=== PATIENT | male | born 1990 | race Caucasian/White ===

== ENCOUNTER 2016-06-15 11:28 | Emergency (ER) | payer OTHER ==
[~2016-06-15] VITALS: Ht 170.2 cm; Wt 101.0 kg
[2016-06-15] MEDS ORDERED: PREDNISONE 20MG TABLET PO STA (13:03)
[2016-06-15] MEDS ORDERED: IPRATROPIUM BROMIDE (0.02%) 0.5MG/2.5ML NEB HHN STA (13:03)
[2016-06-15] MEDS ORDERED: ALBUTEROL (0.083%) 2.5MG/3ML NEB HHN STA (13:03)
[2016-06-15] MEDS ORDERED: ALBUTEROL (0.083%) 2.5MG/3ML NEB ONE (13:19)
[2016-06-15] MEDS ORDERED: IPRATROPIUM BROMIDE (0.02%) 0.5MG/2.5ML NEB ONE (13:20)
[2016-06-15 15:24] VITALS: BP 104/69
== END 2016-06-15 15:27 | disposition home or self-care (01) ==
LOC: ER 13:04
DX: J45.901 Unspecified asthma with (acute) exacerbation (principal); F17.200 Nicotine dependence, unspecified, uncomplicated; F12.10 Cannabis abuse, uncomplicated
CPT/HCPCS: 71010; 93005; 94644; 99285; 99406; J7512; J7611